=== PATIENT | female | born 2005 | race Caucasian/White ===

== ENCOUNTER 2024-02-12 00:50 | Emergency (ER) | payer OTHER, SELFPAY ==
[2024-02-12 00:55] VITALS: BP 135/85; PULSE 88; TEMP 36.9; O2SAT 97; BMI 33.1
--- NOTE | 2024-02-12 01:17 | ED.FEMALEGU1 ---
HPI - Female Genitourinary General Chief complaint: Urogenital-Female Stated complaint: CHECK FOR STD-ITCHING Time Seen by Provider: 02/12/24 01:09 Source: patient Mode of arrival: walk-in Limitations: no limitations History of Present Illness HPI Narrative: 18-year-old female presents for concern of yeast infection or an STD. She has a new sexual partner and has itching. She does not have any discharge other than her scant white discharge which is normal for her and has every day. Last period was only 1 day. She has not had fever or vaginal bleeding. Related Data Allergies Allergy/AdvReac Type Severity Reaction Status Date / Time No Known Drug Allergies Allergy Verified 02/12/24 00:55 Review of Systems ROS Narrative A ten point review of systems is negative except as noted above. Exam Narrative Exam Narrative: Nurses note and vital signs reviewed and patient is not hypoxic. General: The patient appears well and in no apparent distress. Patient is resting comfortably on cart. Skin: Warm, dry, no pallor noted. There is no rash noted. Head: Normocephalic, atraumatic Eye: Normal conjunctiva, no drainage Ears, Nose, Mouth, and Throat: oral mucosa is moist. Nares patent. Cardiovascular: Regular Rate and Rhythm Respiratory: Patient is in no distress, no accessory muscle use, lungs are clear to auscultation, no wheezing, rales or rhonchi Back: non-tender GI: Soft and nontender Musculoskeletal: No joint swelling Neurological: A&O, normal speech Psychiatric: Cooperative Constitutional Vital Signs, click to edit/add: Last Vital Signs Temp 98.4 F 02/12/24 00:55 Pulse 88 02/12/24 00:55 Resp 18 02/12/24 00:55 BP 135/85 02/12/24 00:55 Pulse Ox 97 02/12/24 00:55 O2 Del Method Room Air 02/12/24 00:55 Course Vital Signs Vital signs: Vital Signs Temperature 98.4 F 02/12/24 00:55 Pulse Rate 88 02/12/24 00:55 Respiratory Rate 18 02/12/24 00:55 Blood Pressure 135/85 02/12/24 00:55 Pulse Oximetry 97 02/12/24 00:55 Oxygen Delivery Method Room Air 02/12/24 00:55 Temperature 98.4 F 02/12/24 00:55 Pulse Rate 88 05/26/24 00:55 Respiratory Rate 18 02/12/24 00:55 Blood Pressure 135/85 02/12/24 00:55 Pulse Oximetry 97 02/12/24 00:55 Oxygen Delivery Method Room Air 02/12/24 00:55 MDM - Female Genitourinary MDM Narrative Medical decision making narrative: test is negative. Urine culture is ordered and gonorrhea and Chlamydia test are ordered as well and are pending. She likely has a yeast infection and is treated with Diflucan here pending the outcome of her cultures. Treatment diagnosis and follow-up were discussed with the patient. Differential Diagnosis Differential diagnosis: Likely urinary tract infection, vaginitis and other (Gonorrhea, chlamydia, yeast infection) Lab Data Attestation: I reviewed the patient's lab results. Labs: Lab Results 02/12/24 Range/Units 01:05 Urine Color Lt. yellow (YELLOW) Urine Clarity Clear (CLEAR) Urine pH 6.0 (5.0-9.0) Ur Specific [place] 1.025 (1.005-1.025) Urine Protein Negative (NEG/TRACE) mg/dL Urine Glucose (UA) Negative (NEGATIVE) mg/dL Urine Ketones Negative (NEGATIVE) mg/dL Urine Occult Blood Negative (NEGATIVE) Urine Nitrite Negative (NEGATIVE) Urine Bilirubin Negative (NEGATIVE) Urine Urobilinogen 0.2 (0.2-1.0) EU/dL Ur Leukocyte Esterase Moderate A (NEGATIVE) Urine RBC None seen (0-2) #/HPF Urine WBC 5-10 A (NONE SEEN) #/HPF Ur Squamous Epith Cells Few A (NONE/RARE) #/LPF Urine Crystals None seen (None Seen) #/HPF Urine Bacteria None seen (NONE SEEN) #/HPF Urine Casts None seen (NONE SEEN) #/LPF Urine Mucus Small A (NONE SEEN) Ur Culture Indicated? 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 Referrals: Physician,Non-Staff, [Physician] - 1 week
[2024-02-12 01:25] LABS: Bilirubin Urine NEGATIVE (NEGATIVE); Blood Urine NEGATIVE (NEGATIVE); Clarity Urine CLEAR (CLEAR); Color Urine LT. YELLOW (YELLOW); Glucose Urine UA NEGATIVE (NEGATIVE); Ketones Urine NEGATIVE (NEGATIVE); Leukocyte Esterase Urine MODERATE (NEGATIVE); Nitrite Urine NEGATIVE (NEGATIVE); Protein Urine NEGATIVE (NEG/TRACE); Specific Gravity Urine 1.025 (1.005-1.025); Urobilinogen Urine 0.2 EU/dL (0.2-1.0)
[2024-02-12 01:27] LABS: HCG Qualitative Urine* NEGATIVE (NEGATIVE)
[2024-02-12 01:32] LABS: Bacteria Urine NONE SEEN #/HPF (NONE SEEN); Mucus Urine SMALL (NONE SEEN); RBC Urine NONE SEEN #/HPF (0-2)
[2024-02-12 01:33] LABS: Cast Seen? NONE SEEN #/LPF (NONE SEEN); Crystals Seen? None Seen #/HPF (None Seen); Squamous Epithelial Cell Urine FEW #/LPF (NONE/RARE); Urine Culture Indicated YES
[2024-02-12] MEDS: FLUCONAZOLE 150 MG TABLET PO (02:00)
[2024-02-15 20:08] LABS: Neisseria gonorrhoeae, NAA Negative (Negative)
== END 2024-02-12 02:13 | disposition home or self-care (01) ==
PROVIDERS: Emergency Provider Emergency Medicine; Family Provider Family Medicine; PCP Nurse Practitioner Family
DX: N76.0 Acute vaginitis (principal)
CPT/HCPCS: 81001; 84703; 87086; 87491; 87591; 99283

== ENCOUNTER 2024-08-06 01:29 | Emergency (ER) | payer OTHER, SELFPAY ==
[2024-08-06 01:30] VITALS: BP 161/93; PULSE 104; TEMP 36.8; O2SAT 100
[2024-08-06] MEDS: ONDANSETRON PF 4 MG/2 ML VIAL IV (01:50)
--- NOTE | 2024-08-06 01:53 | CT_ITS ---
The [address] [address] Patient Name: GEORGES WHITTAKER MRN: [id number] date: 2005 Sex: F Assigned Patient Location: ER Current Patient Location: ER Accession/Order Number: [id number] Exam Date: 08/06/2024 02:30 Report Date: 08/06/2024 04:33 At the request of: HALLIE MOSS Procedure: CT abdomen pelvis w con EXAM: CT abdomen pelvis w con HISTORY: LLQ pain beginning one hour ago during a bowel movement. COMPARISON: None. TECHNIQUE: IV contrast enhanced CT imaging of the abdomen and pelvis was performed with sagittal and coronal reconstructions. Dose reduction techniques were achieved by using automated exposure control and/or adjustment of mA and/or kV according to patient size and/or use of iterative reconstruction technique. FINDINGS: CT ABDOMEN: The lung bases are clear. The heart is unremarkable. There is beam attenuation artifact from the patient being scanned with her arms at her sides. The liver, gallbladder, pancreas, adrenal glands, stomach, small bowel, aorta, IVC and right kidney are unremarkable. There is mild left hydroureteronephrosis due to a punctate 2 mm distal left ureteral stone at the UVJ resulting in mild obstructive uropathy with mild asymmetric decreased enhancement of the left kidney compared to the right. CT PELVIS: The appendix, pelvic small bowel loops, colon, uterus and urinary bladder are normal in appearance. Mild free fluid in the pelvic cul-de-sac is likely physiologic. There is no loculated fluid or free air. A pessary in incidentally noted in the vagina. No diagnostic osseous abnormality is seen. CT/CT abdomen pelvis w con IMPRESSION: 1. The patient's left lower quadrant pain is due to a 2 mm distal left ureteral stone at the UVJ resulting in mild obstructive uropathy, with mild left hydroureteronephrosis and asymmetric decreased enhancement of the left kidney compared to the right. 2. Mild physiologic free fluid in the pelvic cul-de-sac. No additional acute findings in the abdomen or pelvis. Electronically authenticated by: SHANDA MCCARTY Date: 08/06/2024 04:33
--- NOTE | 2024-08-06 01:54 | ED_ITS ---
HPI - Abdominal Pain General Chief Complaint: Abdominal Pain Stated Complaint: ABD PAIN Time Seen by Provider: 08/06/24 01:49 Source: patient Mode of arrival: walk-in Limitations: no limitations History of Present Illness HPI narrative: patient presents with acute LLQ pain. Started within the hour. Denies similar pain in the past. No fever or urinary complaint. States not and has a control ring in place. Abrupt onset of pain. Related Data Allergies Allergy/AdvReac Type Severity Reaction Status Date / Time No Known Drug Allergies Allergy Verified 08/06/24 01:33 Review of Systems ROS Status of ROS 10 or more systems reviewed and unremark able except as noted in history and below Exam Constitutional Vital Signs, click to edit/add: Last Vital Signs Temp 98.3 F 08/06/24 01:30 Pulse 98 H 08/06/24 02:48 Resp 18 08/06/24 02:48 BP 110/60 08/06/24 04:00 Pulse Ox 96 08/06/24 04:20 O2 Del Method Room Air 08/06/24 02:48 Common normals: average body habitus, oriented x3, no limitations, healthy appearing, alert and well nourished General appearance: in distress HENMT Common normals: normocephalic and head/scalp atraumatic Eye Common normals: EOMs intact bilaterally Respiratory Common normals: normal respiratory effort, no retractions, no use of accessory muscles and clear to auscultation bilaterally Cardio Common normals: S1 normal heart sound and S2 normal heart sound Rate: tachycardic GI Other: left CVA and LLQ tenderness Extremity Common normals: normal to inspection and full ROM Neuro Common normals: oriented x3, CN's II-XII intact bilaterally, moves all extremities and no focal motor deficits Psych Appearance: grossly normal Course Vital Signs Vital signs: Vital Signs Temperature 98.3 F 08/06/24 01:30 Pulse Rate 104 H 08/06/24 01:30 Respiratory Rate 22 H 08/06/24 01:30 Blood Pressure 161/93 H 08/06/24 01:30 Pulse Oximetry 100 08/06/24 01:30 Oxygen Delivery Method Room Air 08/06/24 01:30 Temperature 98.3 F 08/06/24 01:30 Pulse Rate 98 H 08/06/24 02:48 Respiratory Rate 18 08/06/24 02:48 Blood Pressure 110/60 08/06/24 04:00 Pulse Oximetry 96 08/06/24 04:20 Oxygen Delivery Method Room Air 08/06/24 02:48 MDM - Abdominal Pain MDM Narrative Medical decision making narrative: patient presents with acute onset of left lower quad pain. Workup remarkable for 2mm left distal ureteral stone and mild hydronephrosis. pain controlled with Morphine and Toradol. patient noted to have decreased GFR. She and her mother informed of the above and the importance of follow up with PCP to recheck renal function. Discharged asymptomatic Lab Data Labs: Lab Results 08/06/24 08/06/24 Range/Units 01:35 04:35 WBC 7.7 (4.0-11.0) 10^3/uL RBC 4.27 (4.20-5.40) 10^6/uL Hgb 12.5 (12.0-16.0) g/dL Hct 37.9 (36.0-48.0) % MCV 88.8 (81.0-99.0) fL MCH 29.3 (26.7-34.0) pg MCHC 33.0 (29.9-35.2) g/dL RDW 12.5 (11.0-15.0) % Plt Count 243 (150-450) 10^3/uL MPV 11.7 (9.5-13.5) fL Neut % (Auto) 37.7 L (43.0-75.0) % Lymph % (Auto) 55.3 (20.5-60.0) % [place] % (Auto) 6.1 (1.7-12.0) % Eos % (Auto) 0.5 L (0.9-7.0) % Baso % (Auto) 0.3 (0.2-2.0) % Neut # (Auto) 2.9 (1.4-6.5) 10^3/uL Lymph # (Auto) 4.3 H (1.2-3.8) 10^3/uL [place] # (Auto) 0.5 (0.3-0.8) 10^3/uL Eos # (Auto) 0.0 (0.0-0.7) 10^3/uL Baso # (Auto) 0.0 (0.0-0.1) 10^3/uL Abs Immat Gran (auto) 0.01 (0.00-0.03) 10^3/uL Imm/Tot Granulo (auto) 0.1 (0.0-0.5) % Sodium 144 (136-145) mmol/L Potassium 3.6 (3.5-5.1) mmol/L Chloride 108 H (98-107) mmol/L Carbon Dioxide 21.3 (21.0-32.0) mmol/L Anion Gap 18.3 BUN 16.0 (7.0-18.0) mg/dL Creatinine 1.47 H (0.55-1.02) mg/dL Est GFR ( Amer) 54 L (>=60 mL/min/1.73m^2) Est GFR (Non-Af Amer) 45 L (>=60 mL/min/1.73m^2) BUN/Creatinine Ratio 10.9 Glucose 110 H (74-106) mg/dL Lactate 1.8 (0.4-2.0) mmol/L Calcium 9.7 (8.5-10.1) mg/dL Total Bilirubin 0.3 (0.2-1.0) mg/dL AST 16 (15-37) U/L ALT 27 (14-59) U/L Alkaline Phosphatase 54 (46-116) U/L Total Protein 7.9 (6.4-8.2) g/dL Albumin 3.5 (3.4-5.0) g/dL Globulin 4.4 g/dL Albumin/Globulin Ratio 0.8 Lipase 56.0 (16.0-77.0) U/L HCG, Quant <1 mIU/mL Urine Color Yellow (YELLOW) Urine Clarity Clear (CLEAR) Urine pH 5.5 (5.0-9.0) Ur Specific [place] <=1.005 A (1.005-1.025) Urine Protein Trace (NEG/TRACE) mg/dL Urine Glucose (UA) Negative (NEGATIVE) mg/dL Urine Ketones Trace A (NEGATIVE) mg/dL Urine Occult Blood Large A (NEGATIVE) Urine Nitrite Negative (NEGATIVE) Urine Bilirubin Negative (NEGATIVE) Urine Urobilinogen 0.2 (0.2-1.0) EU/dL Ur Leukocyte Esterase Negative (NEGATIVE) Urine RBC 2-5 A (0-2) #/HPF Urine WBC None seen (NONE SEEN) #/HPF Ur Squamous Epith Cells Rare (NONE/RARE) #/LPF Urine Crystals None seen (None Seen) #/HPF Urine Bacteria None seen (NONE SEEN) #/HPF Urine Casts None seen (NONE SEEN) #/LPF Urine Mucus None seen (NONE SEEN) Ur Culture Indicated? No Discharge Plan Discharge Chief Complaint: Abdominal Pain Clinical Impression: Calculus of kidney Patient Disposition: Home, Self-Care Print Language: Nigerien Instructions: Kidney Stones (ED) Additional Instructions: drink plenty of fluids and follow up with your doctor this week Referrals: MARLENE WAGNER [Primary Care Provider] - 1 week
[2024-08-06] MEDS: 0.9 % SODIUM CHLORIDE 1,000 ML 999 ML IV (01:55)
[2024-08-06] MEDS: MORPHINE SULFATE 4 MG/ML VIAL IV (01:55)
[2024-08-06 02:01] LABS: Basophils Percent Auto 0.3 % (0.2-2.0); Eosinophils Percent Auto 0.5 % (0.9-7.0); Hematocrit 37.9 % (36.0-48.0); Hemoglobin 12.5 g/dL (12.0-16.0); Immature Granulocytes Abs Auto 0.01 10^3/uL (0.00-0.03); Immature Granulocytes Pct Auto 0.1 % (0.0-0.5); Lymphocytes Absolute Auto 4.3 10^3/uL (1.2-3.8); Lymphocytes Percent Auto 55.3 % (20.5-60.0); Mean Corpuscular Hemoglobin 29.3 pg (26.7-34.0); Mean Corpuscular Volume 88.8 fL (81.0-99.0); Mean Platelet Volume 11.7 fL (9.5-13.5); Monocytes Absolute Auto 0.5 10^3/uL (0.3-0.8); Monocytes Percent Auto 6.1 % (1.7-12.0); Neutrophils Absolute Auto 2.9 10^3/uL (1.4-6.5); Neutrophils Percent Auto 37.7 % (43.0-75.0); Platelet Count 243 10^3/uL (150-450); Red Blood Count 4.27 10^6/uL (4.20-5.40); Red Cell Distribution Width 12.5 % (11.0-15.0); White Blood Count 7.7 10^3/uL (4.0-11.0)
[2024-08-06 02:12] LABS: Alanine Aminotransferase 27 U/L (14-59); Albumin Globulin Ratio 0.8; Albumin Level 3.5 g/dL (3.4-5.0); Alkaline Phosphatase 54 U/L (46-116); Anion Gap 18.3; Aspartate Amino Transferase 16 U/L (15-37); BUN Creatinine Ratio 10.9; Bilirubin Total 0.3 mg/dL (0.2-1.0); Calcium 9.7 mg/dL (8.5-10.1); Carbon Dioxide 21.3 mmol/L (21.0-32.0); Chloride 108 mmol/L (98-107); Estimated GFR (African America 54 (>=60 mL/min/1.73m^2); Estimated GFR (Non-African Ame 45 (>=60 mL/min/1.73m^2); Globulin 4.4 g/dL; Glucose 110 mg/dL (74-106); Potassium 3.6 mmol/L (3.5-5.1); Sodium 144 mmol/L (136-145); Total Protein 7.9 g/dL (6.4-8.2)
[2024-08-06 02:14] LABS: Lactate/Lactic Acid 1.8 mmol/L (0.4-2.0)
[2024-08-06 02:22] LABS: HCG Quantitative <1 mIU/mL
[2024-08-06 02:48] VITALS: BP 139/79; PULSE 98; O2SAT 98
[2024-08-06] MEDS: KETOROLAC TROMETHAMINE 30 MG/ML VIAL IVP (03:20)
[2024-08-06 04:00] VITALS: BP 110/60
[2024-08-06 04:20] VITALS: O2SAT 96
[2024-08-06 04:42] LABS: Bilirubin Urine NEGATIVE (NEGATIVE); Blood Urine LARGE (NEGATIVE); Clarity Urine CLEAR (CLEAR); Color Urine YELLOW (YELLOW); Glucose Urine UA NEGATIVE (NEGATIVE); Ketones Urine TRACE mg/dL (NEGATIVE); Leukocyte Esterase Urine NEGATIVE (NEGATIVE); Nitrite Urine NEGATIVE (NEGATIVE); Protein Urine TRACE mg/dL (NEG/TRACE); Specific Gravity Urine <=1.005 (1.005-1.025); Urobilinogen Urine 0.2 EU/dL (0.2-1.0); pH Urine 5.5 (5.0-9.0)
[2024-08-06 04:43] LABS: Urine Microscopic Indicated YES
[2024-08-06 04:51] LABS: Bacteria Urine NONE SEEN #/HPF (NONE SEEN); Cast Seen? NONE SEEN #/LPF (NONE SEEN); Crystals Seen? None Seen #/HPF (None Seen); Mucus Urine NONE SEEN (NONE SEEN); Squamous Epithelial Cell Urine RARE #/LPF (NONE/RARE); Urine Culture Indicated NO; WBC Urine NONE SEEN #/HPF (NONE SEEN)
== END 2024-08-06 05:18 | disposition home or self-care (01) ==
PROVIDERS: Emergency Provider Internal Medicine; Family Provider Family Medicine; PCP Nurse Practitioner Family
DX: N13.2 Hydronephrosis with renal and ureteral calculous obstruction (principal)
CPT/HCPCS: 36415; 74177; 80053; 81001; 83605; 83690; 84702; 85025; 96374; 96375; 99285; J1885; J2270; J2405; Q9967